=== PATIENT | male | born 1945 | race Caucasian/White ===

== ENCOUNTER 2018-12-27 15:14 | Emergency (ER) | payer MEDICARE ==
[~2018-12-27] VITALS: Ht 182.9 cm; Wt 86.4 kg
[2018-12-27 15:49] LABS: BASOPHILS # (AUTO) 0.1 X10'3 (0-0.2); BASOPHILS % (AUTO) 1.2 % (0-1); EOSINOPHILS # (AUTO) 0.1 X10'3 (0-0.9); EOSINOPHILS % (AUTO) 1.3 % (0-6); HEMATOCRIT 34.2 % (42.0-52.0); HEMOGLOBIN 11.8 g/dl (14.0-17.9); LYMPHOCYTES # (AUTO) 0.8 X10'3 (1.1-4.8); LYMPHOCYTES % (AUTO) 9.3 % (21-51); MEAN CORPUSCULAR HEMOGLOBIN 33.5 PG (27.0-31.0); MEAN CORPUSCULAR HGB CONC 34.5 g/dL (33.0-36.5); MEAN CORPUSCULAR VOLUME 97.2 FL (78-98); MEAN PLATELET VOLUME 8.2 FL (7.4-10.4); MONOCYTES # (AUTO) 0.9 X10'3 (0-0.9); MONOCYTES % (AUTO) 10.9 % (2-12); NEUTROPHILS # (AUTO) 6.3 X10'3 (1.8-7.7); NEUTROPHILS % (AUTO) 77.3 % (42-75); PLATELET COUNT 193 X10'3 (140-440); RED BLOOD COUNT 3.52 X10'6 (4.70-6.10); RED CELL DISTRIBUTION WIDTH 16.8 % (11.5-14.5); WHITE BLOOD COUNT 8.1 X10'3 (4.5-11.0)
[2018-12-27 15:57] LABS: ALANINE AMINOTRANSFERASE 31 U/L (12-78); ALBUMIN 3.5 G/DL (3.4-5.0); ALKALINE PHOSPHATASE 132 IU/L (46-116); ANION GAP 7 (8-16); ASPARTATE AMINO TRANSFERASE 34 U/L (10-37); BLOOD UREA NITROGEN 20 MG/DL (7-18); BUN/CREATININE RATIO 19.6 (5.4-32.0); CHLORIDE 102 MMOL/L (99-107); CREATININE 1.02 MG/DL (0.60-1.10); GLUCOSE 104 MG/DL (70-104); POTASSIUM 3.4 MMOL/L (3.5-5.1); SODIUM 139 MMOL/L (135-145); TOTAL CARBON DIOXIDE 29.7 MMOL/L (24-32); TOTAL PROTEIN 7.1 G/DL (6.4-8.2); eGFR 72 ML/MIN
--- NOTE | 2018-12-27 16:24 | NUR ---
awaiting ed provider.
[2018-12-27] MEDS ORDERED: ALBU18HF2 INH (16:37)
[2018-12-27] MEDS ORDERED: DOXY100C43 PO ×2 (16:37→19:36)
[2018-12-27] MEDS ORDERED: PRED20TA PO ×2 (16:37→19:36)
[2018-12-27] MEDS ORDERED: PRIM250T8 PO (16:46)
[2018-12-27] MEDS ORDERED: SERT100T PO (16:46)
[2018-12-27] MEDS ORDERED: TIOT18CA3 PO (16:46)
[2018-12-27] MEDS ORDERED: MELO-102 PO (16:46)
[2018-12-27] MEDS ORDERED: MONT10TA24 PO (16:46)
[2018-12-27] MEDS ORDERED: PANT-47 PO (16:58)
[2018-12-27] MEDS ORDERED: ATOR-2 PO (16:58)
[2018-12-27] MEDS ORDERED: METO25TA6 PO (16:58)
[2018-12-27] MEDS ORDERED: GABA800T11 PO (16:58)
[2018-12-27] MEDS ORDERED: ACET-2119 PO (16:58)
[2018-12-27] MEDS ORDERED: BUDE0.5A3 NEB (16:58)
[2018-12-27] MEDS ORDERED: IPRA3AMP31 IH (16:58)
[2018-12-27] MEDS ORDERED: MAGN400C PO (16:58)
[2018-12-27] MEDS ORDERED: GUAI600T45 PO (16:58)
[2018-12-27] MEDS ORDERED: LEVO88TA2 PO (16:58)
[2018-12-27] MEDS ORDERED: ASPI-611 PO (16:58)
--- NOTE | 2018-12-27 17:34 | NUR ---
dr. pierson at bedside.
[2018-12-27] MEDS ORDERED: dexamethasone sod phosphate 10mg/ml inj IV STA (17:39)
[2018-12-27] MEDS ORDERED: ipratropium/albuterol 3ml nebule NEB ONE (17:40)
--- NOTE | 2018-12-27 17:47 | NUR ---
patient to ct.
--- NOTE | 2018-12-27 18:02 | NUR ---
patient back in the room from ct.
--- NOTE | 2018-12-27 18:07 | NUR ---
awaiting rt to admin breathing tx.
[2018-12-27] MEDS ORDERED: sucralfate 1gm/10ml UD suspension PO ONE (19:05)
[2018-12-27] MEDS ORDERED: LIDOcaine Viscous 15ml cup MM PRN (19:05)
[2018-12-27] MEDS ORDERED: sucralfate 1gm/10ml UD suspension PO SCH (19:05)
[2018-12-27] MEDS ORDERED: famotidine/PF 10 mg/ml inj IV ONE (19:05)
[2018-12-27] MEDS ORDERED: mag hydrox/Alum hydrox/simeth 30ml oral suspension PO ONE (19:05)
[2018-12-27] MEDS ORDERED: pantoprazole 40 MG vial IV ONE (19:05)
[2018-12-27] MEDS ORDERED: ALBU8HFA PO (19:36)
[2018-12-27] MEDS ORDERED: OMEP20CA11 PO (19:36)
[2018-12-27] MEDS ORDERED: FAMO20TA44 PO (19:36)
[2018-12-27 21:05] VITALS: BP 111/75
== END 2018-12-27 21:16 | disposition home or self-care (01) ==
LOC: ER 15:15
DX: J44.1 Chronic obstructive pulmonary disease with (acute) exacerbation (principal); J20.9 Acute bronchitis, unspecified; R10.11 Right upper quadrant pain; R10.12 Left upper quadrant pain; R10.13 Epigastric pain; I10 Essential (primary) hypertension; F17.200 Nicotine dependence, unspecified, uncomplicated; Z86.73 Personal history of transient ischemic attack (TIA), and cerebral infarction without residual deficits; Z90.49 Acquired absence of other specified parts of digestive tract; Z79.82 Long term (current) use of aspirin; Z79.899 Other long term (current) drug therapy
CPT/HCPCS: 36415; 71045; 74176; 80053; 83880; 84484; 85025; 93005; 94640; 94760; 96374; 96375; 99284; C9113; J1100; J3490